=== PATIENT | male | born 1940 | race Caucasian/White ===

== ENCOUNTER → 2016-08-04 | Outpatient (CLI) | payer MEDICARE, OTHER ==
[~2016-08-04] MED LIST: AZELASTINE137 MCG/0. NS; CARDURA4 M1 PO; CLOPIDOGREL75 MG PO; FLONASE 0.05% N16 G1; LANSOPRAZOLE30 M2 PO; METOPROLOL PO; OMEPRAZOLE20 M2 PO; TASPRIN325 MG PO; TRIAMTERENE-HCT1 TA6 PO; ZETIA PO
--- NOTE | ~2016-08-04 | CT55 ---
[facility]. [facility] A Service of [facility] RADIOLOGY TEXT RESULTS PATIENT: SCOTT MARTINEZ LOCATION: [facility] : 38 UNIT #: [id number] AGE: [address]: Braulio Granda MD SEX: M ORDER DR: [id number] [address] [address] [id number] O MR#: [id number] Acc #: [id number] NAME: SCOTT MARTINEZ : 1940 SEX: M STUDY DATE/TIME: 08/04/2016 14:29 UNIT: [facility] ROOM: STUDY DESCRIPTION: CT Chest W Con Attending Physician: Braulio Granda M.D. Referring Physician: Braulio rGanda M.D. Ordering Physician: Candido Gaytan Primary Care Physician: Braulio Granda M.D. MEDICAL IMAGING REPORT This report is preliminary unless electronic signature is present. EXAM CT chest HISTORY 76-year-old male with aortic dilatation. Dizzy spells x1 year. TECHNIQUE Axial images performed through the chest following IV contrast. Sagittal and coronal reconstructed images reviewed at a workstation. This CT exam was performed with one or more of the following radiation dose reduction techniques: automatic exposure control, adjustment of mA and/or kV according to patient size, and iterative reconstruction. FINDINGS There are multiple peripheral subpleural nodules within the lung bases all measuring less than 6 mm. Current recommendations are for no routine followup for nodules less than 6 mm on a low risk patient. Background parenchyma unremarkable. No effusions. There is a calcified granuloma right lower lobe. Trachea and bronchi unremarkable. There is mild aortic dilatation of the aortic root measuring up to 4.4 cm. No dissection. Pulmonary arteries unremarkable. Heart size within normal limits. Extensive coronary artery calcifications noted. Upper abdomen remarkable for post cholecystectomy changes. Probable small hiatal hernia. Osseous structures and extrathoracic soft tissues appear normal. There is shotty mediastinal and hilar lymphadenopathy. None appear pathologically enlarged. IMPRESSION 1. 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 2. Multiple bilateral peripheral and subpleural lung nodules all STS. [facility] A Service of [facility] RADIOLOGY TEXT RESULTS PATIENT: SCOTT MARTINEZ LOCATION: [facility] : 38 UNIT #: [id number] AGE: [address]: Braulio Granda MD SEX: M ORDER DR: measuring less 6 mm. Current recommendation is for no routine follow up in a low-risk patient. These probably represent noncalcified granulomas. 1. Dictated by... Eldon Figueroa M.D. THIS IS AN ELECTRONICALLY VERIFIED REPORT Eldon Figueroa M.D. at 08/07/2016 4:56 PM TIFFANIE/lane TD: 08/07/2016 11:08 JOB #: [id number] MEDICAL IMAGING REPORT Page 1 of 1
[2016-08-04 14:41] LABS: POC - CREATININE 1.07 mg/dL (0.64-1.27); POC - GFR >60.0 mL/min (>60)
== END | disposition home or self-care (01) ==
LOC: SCT 13:26
PROVIDERS: Family Medicine
DX: I77.819 Aortic ectasia, unspecified site (principal); R91.8 Other nonspecific abnormal finding of lung field
CPT/HCPCS: 71260; 82565; Q9967

== ENCOUNTER → 2016-08-11 | Outpatient (CLI) | payer MEDICARE, OTHER ==
--- NOTE | ~2016-08-11 | ST ---
Unit #: [id number] #: [id number] Patient: SCOTT MATRINEZ [id number] [facility]. [place], [place] [address] [id number] O MR#: [id number] NAME: SCOTT MARTINEZ : 1940 SEX: M STUDY DATE/TIME: 08/11/2016 UNIT: [facility] ROOM: STUDY DESCRIPTION: Stress test Attending Physician: Jerrod Matthew M.D. Referring Physician: Jerrod Matthew M.D. Primary Care Physician: Braulio Granda M.D. CARDIOLOGY REPORT EXAM Stress nuclear and ECG combined. INDICATIONS Abnormal ECG, decreased blood pressure, dizziness for the diagnosis of obstructive coronary disease in a patient who could not exercise enough to accomplish the test. FINDINGS The resting ECG is abnormal with left anterior hemiblock and flattened T waves in aVL. There is also 0.[address] depression in lead V6 with Q waves in V6. With stress, there were no diagnostic ST shifts, no dysrhythmias, and no heart block. There are single PVCs noted. The heart rate increased from 61 to 82 and blood pressure decreased, 177/99 to 137/83. Lexiscan had been given intravenously at rest with technetium 99 Cardiolite, 10.57 and 31.9 mCi, at rest and stress, respectively. Appropriate views were obtained. FINDINGS The study is adequate. There is no significant patient motion noted during acquisition of the rest or stress images. There is no significant lung uptake, LV or RV enlargement. Summed stress score is 5. Gated perfusion wall motion analysis demonstrates LV at the upper limits of normal in size at 105 mL, ejection fraction 55%. The RV is fairly well seen on this view. It appears to be upper limits of normal in size to mildly enlarged also. Echo correlation may be useful. Perfusion images demonstrate diaphragmatic artifact and intestinal artifact, both at rest and stress. There is a mild decrease in perfusion in a small area of the basal inferior wall only with stress. Because of the intestinal artifact being slightly stronger during stress, this may be artifact related only. It is very minimal and very localized. Other areas of the LV appear normal in perfusion both at rest and stress. IMPRESSION 1. No evidence of infarction. 2. Possible small area of very mild ischemia in the basal inferior wall only. All other lee appeared normal. 3. Normal ejection fraction. 4. Upper normal LV size. 5. Possible RV enlargement, seen on the SPECT views. Echo correlation may be useful. 6. Stress ECG is normal with Lexiscan. Unit #: [id number] #: [id number] Patient: SCOTT MARTINEZ Dictated by... Carolin Aponte/hannah TD: 08/11/2016 13:27 JOB #: [id number] CARDIOLOGY REPORT Page 1 of 1 X Mike Minor MD CARDIOLOGY REPORT
--- NOTE | ~2016-08-11 | TH ---
Unit #: [id number] #: [id number] Patient: SCOTT MARTINEZ [id number] [address] [id number] O MR#: [id number] NAME: SCOTT MARTINEZ : 1940 SEX: M STUDY DATE/TIME: 08/11/2016 UNIT: [facility] ROOM: STUDY DESCRIPTION: Stress nucler. Attending Physician: Jerrod Matthew M.D. Referring Physician: Jerrod Matthew M.D. Primary Care Physician: Braulio Granda M.D. CARDIOLOGY REPORT EXAM Stress nuclear. FINDINGS Result text under stress test. Please see this report for result text. Dictated by... Carolin Aponte/hannah TD: 08/11/2016 13:24 JOB #: [id number] CARDIOLOGY REPORT Page 1 of 1 X Mike Minor MD CARDIOLOGY REPORT
== END | disposition home or self-care (01) ==
LOC: CNUC 07:26
DX: R07.9 Chest pain, unspecified (principal); I49.3 Ventricular premature depolarization
CPT/HCPCS: 78452; 93017; A9500; J2785